=== PATIENT | female | born 1985 | race Two or more races ===

== ENCOUNTER 2021-11-16 22:20 | Emergency (ER) | payer MEDICAID ==
[~2021-11-16] VITALS: Ht 167.6 cm; Wt 82.7 kg
[2021-11-16] MEDS ORDERED: LORA-1000 PO (22:44)
[2021-11-16] MEDS ORDERED: ALPR-709 PO (22:44)
[2021-11-16] MEDS ORDERED: ZOLP10TA8 PO (22:44)
[2021-11-16] MEDS ORDERED: ESCI-8 PO (22:44)
[2021-11-16] MEDS ORDERED: MIRT30 PO (23:02)
[2021-11-16 23:29] LABS: BASOPHILS % (AUTO) 2.3 % (0.0-2.0); HEMOGLOBIN 9.4 g/dL (12.0-16.0); LYMPHOCYTES # (AUTO) 3.9 K/uL (1.0-4.8); LYMPHOCYTES % (AUTO) 40.5 % (22.0-44.0); MEAN CORPUSCULAR HEMOGLOBIN 24.3 pg (26.0-34.0); MEAN CORPUSCULAR HGB CONC 32.5 G/dL (31.0-37.0); MEAN CORPUSCULAR VOLUME 75 fL (80-100); MONOCYTES # (AUTO) 0.7 K/uL (0.1-1.0); MONOCYTES % (AUTO) 7.3 % (2.0-9.0); NEUTROPHILS # (AUTO) 4.4 K/uL (1.8-7.7); NEUTROPHILS % (AUTO) 45.9 % (40.0-70.0); PLATELET COUNT (AUTO) 195 K/uL (150-450); RED BLOOD CELL COUNT(AUTO) 3.88 MIL/uL (4.00-5.20)
[2021-11-16 23:38] LABS: ANION GAP 10 mmol/L (8-16); CALCIUM, TOTAL 8.1 mg/dL (8.8-10.5); CARBON DIOXIDE 23 mmol/L (22-29); CHLORIDE 104 mmol/L (98-107); CREATININE 0.85 mg/dL (0.60-1.30); GLOMERULAR FILTR. RATE CALC > 60 mL/min (>60); GLUCOSE,RANDOM 86 mg/dL (70-110); POTASSIUM 4.1 mmol/L (3.5-5.1); SODIUM SERUM 137 mmol/L (136-145); UREA NITROGEN, BLOOD 24 mg/dL (7-18)
[2021-11-16 23:44] LABS: ALANINE AMINOTRANSFERASE 13 U/L (12-78); ALBUMIN 3.4 g/dL (3.4-5.0); ALKALINE PHOSPHATASE 92 U/L (46-116); ASPARTATE AMINOTRANSFERASE 13 U/L (15-37); BILIRUBIN,TOTAL 0.1 mg/dL (0.1-1.0); LIPASE 140 U/L (73-393); TOTAL PROTEIN, SERUM 6.9 g/dL (6.4-8.2)
[2021-11-17] MEDS ORDERED: SODIUM CHLORIDE 0.9% 1,000 ML IV ONE ×2 (00:45)
[2021-11-17] MEDS ORDERED: DiphenhydrAMINE HCL 50 MG/ML VIAL IVP ONE (00:45)
[2021-11-17] MEDS ORDERED: FAMOTIDINE 10 MG/ML 2 ML VIAL IVP ONE (00:45)
[2021-11-17] MEDS ORDERED: MORPHINE SULFATE 4 MG/ML SYRINGE IVP ONE (00:45)
[2021-11-17 00:58] LABS: APPEARANCE,URINE CLEAR (CLEAR); BILIRUBIN,URINE NEGATIVE (NEGATIVE); GLUCOSE, URINE (UA) NEGATIVE (NEGATIVE); KETONES,URINE NEGATIVE (NEGATIVE); LEUKOCYTE ESTERASE ,URINE TRACE (NEGATIVE); NITRATE,URINE NEGATIVE (NEGATIVE); OCCULT BLOOD,URINE NEGATIVE (NEGATIVE); PH,URINE 5.5 (5.0-8.0); PROTEIN,URINE NEGATIVE (NEGATIVE); SPECIFIC GRAVITIY, URINE 1.011 (1.003-1.030); UROBILINOGEN,URINE <=1.0 mg/dL (<=1.0)
[2021-11-17 01:03] LABS: BACTERIA,URINE None Seen /HPF (None Seen); RBC,URINE 0-2 /HPF (0-2); SQUAMOUS EPITHELIAL CELL,UR Moderate /LPF (None Seen); WBC,URINE 0-2 /HPF (0-5)
[2021-11-17] MEDS ORDERED: KETAMINE HCL 50 MG/ML 10 ML VIAL IVP ONE (01:45)
[2021-11-17 01:56] LABS: AMPHET/METH SCREEN,URINE NEGATIVE (NEGATIVE); BARBITURATE SCREEN, URINE NEGATIVE (NEGATIVE); BENZODIAZEPINES SCREEN,URINE POSITIVE (NEGATIVE); CANNABINOID SCREEN,URINE POSITIVE (NEGATIVE); COCAINE SCREEN,URINE NEGATIVE (NEGATIVE); METHADONE SCREEN, URINE NEGATIVE (NEGATIVE); OPIATE SCREEN,URINE NEGATIVE (NEGATIVE)
[2021-11-17 01:58] LABS: PHENCYCLIDINE SCREEN,URINE NEGATIVE (NEGATIVE)
[2021-11-17] MEDS ORDERED: ONDANSETRON HCL 4 MG/2 ML VIAL IVP ONE ×2 (04:00)
[2021-11-17] MEDS ORDERED: MORPHINE SULFATE 2 MG/ML SYRINGE IVP ONE (04:15)
[2021-11-17 05:00] VITALS: BP 114/60
== END 2021-11-17 05:30 | disposition home or self-care (01) ==
LOC: EMS 22:23
DX: R10.13 Epigastric pain (principal); R10.12 Left upper quadrant pain; R11.10 Vomiting, unspecified; E86.0 Dehydration; F41.9 Anxiety disorder, unspecified; F32.9 Major depressive disorder, single episode, unspecified; Z88.6 Allergy status to analgesic agent; Z88.8 Allergy status to other drugs, medicaments and biological substances
CPT/HCPCS: 36415; 74176; 80053; 80307; 81001; 83690; 84703; 85025; 96361; 96374; 96375; 96376; 99284; G0480; J1200; J2270 ×2; J2405 ×2; J3490 ×2; J7030

== ENCOUNTER 2021-11-21 11:38 | Inpatient (IN) | payer MEDICAID ==
[~2021-11-21] VITALS: Ht 167.6 cm; Wt 81.8 kg
[~2021-11-21 11:38] MED LIST: ALPR-709 PO; ESCI-8 PO; LORA-1000 PO; MIRT30 PO; ZOLP10TA8 PO
[2021-11-21 12:08] LABS: APPEARANCE,URINE CLEAR (CLEAR); BILIRUBIN,URINE NEGATIVE (NEGATIVE); GLUCOSE, URINE (UA) NEGATIVE (NEGATIVE); KETONES,URINE NEGATIVE (NEGATIVE); LEUKOCYTE ESTERASE ,URINE NEGATIVE (NEGATIVE); NITRATE,URINE NEGATIVE (NEGATIVE); OCCULT BLOOD,URINE NEGATIVE (NEGATIVE); PH,URINE 7.5 (5.0-8.0); PROTEIN,URINE NEGATIVE (NEGATIVE); SPECIFIC GRAVITIY, URINE 1.005 (1.003-1.030); UROBILINOGEN,URINE <=1.0 mg/dL (<=1.0)
[2021-11-21 12:12] LABS: BACTERIA,URINE None Seen /HPF (None Seen); RBC,URINE None Seen /HPF (0-2); WBC,URINE None Seen /HPF (0-5)
[2021-11-21] MEDS ORDERED: SODIUM CHLORIDE 0.9% 1,000 ML IV ONE ×2 (12:30→17:00)
[2021-11-21 12:48] LABS: BASOPHILS % (AUTO) 2.2 % (0.0-2.0); EOSINOPHILS % (AUTO) 5.5 % (1.0-6.0); HEMATOCRIT 33.4 % (36-46); HEMOGLOBIN 10.9 g/dL (12.0-16.0); LYMPHOCYTES # (AUTO) 2.3 K/uL (1.0-4.8); LYMPHOCYTES % (AUTO) 37.3 % (22.0-44.0); MEAN CORPUSCULAR HEMOGLOBIN 24.3 pg (26.0-34.0); MEAN CORPUSCULAR HGB CONC 32.5 G/dL (31.0-37.0); MEAN CORPUSCULAR VOLUME 75 fL (80-100); MONOCYTES # (AUTO) 0.4 K/uL (0.1-1.0); MONOCYTES % (AUTO) 6.9 % (2.0-9.0); NEUTROPHILS # (AUTO) 2.9 K/uL (1.8-7.7); NEUTROPHILS % (AUTO) 48.1 % (40.0-70.0); PLATELET COUNT (AUTO) 212 K/uL (150-450); RED BLOOD CELL COUNT(AUTO) 4.46 MIL/uL (4.00-5.20); RED CELL DISTRIBUTION WIDTH 17.2 % (11.5-14.5)
[2021-11-21 13:00] LABS: ANION GAP 9 mmol/L (8-16); CALCIUM, TOTAL 8.6 mg/dL (8.8-10.5); CARBON DIOXIDE 25 mmol/L (22-29); CHLORIDE 106 mmol/L (98-107); GLOMERULAR FILTR. RATE CALC > 60 mL/min (>60); GLUCOSE,RANDOM 93 mg/dL (70-110); POTASSIUM 4.4 mmol/L (3.5-5.1); SODIUM SERUM 140 mmol/L (136-145); UREA NITROGEN, BLOOD 12 mg/dL (7-18)
[2021-11-21 13:05] LABS: ALBUMIN 3.8 g/dL (3.4-5.0); ASPARTATE AMINOTRANSFERASE 13 U/L (15-37); BILIRUBIN,TOTAL 0.3 mg/dL (0.1-1.0)
[2021-11-21 13:21] LABS: ALANINE AMINOTRANSFERASE 13 U/L (12-78); ALKALINE PHOSPHATASE 91 U/L (46-116); LIPASE 122 U/L (73-393); TOTAL PROTEIN, SERUM 7.8 g/dL (6.4-8.2)
[2021-11-21] MEDS ORDERED: HYDROmorphone 2 MG/ML VIAL IVP ONE (13:30)
[2021-11-21] MEDS ORDERED: ONDANSETRON HCL 4 MG/2 ML VIAL IVP ONE (13:30)
[2021-11-21] MEDS ORDERED: ACETAMINOPHEN 325 MG TABLET PO PRN ×2 (13:45→17:00)
[2021-11-21] MEDS ORDERED: ONDANSETRON HCL 4 MG/2 ML VIAL IVP PRN (13:45)
[2021-11-21] MEDS ORDERED: 0.9% SODIUM CHLORIDE 10 ML SYRINGE IVP PRN (13:45)
[2021-11-21] MEDS ORDERED: DiphenhydrAMINE HCL 50 MG/ML VIAL IVP ONE (13:45)
[2021-11-21] MEDS ORDERED: LORazepam 2 MG/ML VIAL IVP ONE (14:00)
[2021-11-21] MEDS ORDERED: MIDAZOLAM HCL 2 MG/2 ML VIAL IVP ONE (14:00)
[2021-11-21 14:19] LABS: TRIGLYCERIDES 130 mg/dL (15-150)
[2021-11-21] MEDS ORDERED: GADOTERATE MEGLUMINE 10 MMOL/20 ML VIAL IVP ONE (14:20)
[2021-11-21] MEDS ORDERED: KETAMINE HCL 50 MG/ML 10 ML VIAL IVP ONE (15:45)
[2021-11-21] MEDS ORDERED: MAGNESIUM HYDROXIDE SUSPENSION 30 ML UDCUP PO PRN (17:00)
[2021-11-21] MEDS: ONDANSETRON HCL 4 MG/2 ML VIAL IVP PRN (17:36)
[2021-11-21 17:50] LABS: COVID AG,FIA SOURCE NASAL SWAB
[2021-11-21] MEDS: DiphenhydrAMINE HCL 50 MG/ML VIAL IVP PRN (19:05)
[2021-11-21] MEDS: HYDROmorphone 2 MG/ML VIAL IVP PRN (19:06)
[2021-11-21 20:57] VITALS: BP 112/72
[2021-11-21] MEDS: PANTOPRAZOLE SODIUM 40 MG/VIAL IVP SCH (21:28)
[2021-11-21] MEDS: DOCUSATE SODIUM 100 MG CAPSULE PO SCH (21:29)
[2021-11-21] MEDS: MORPHINE SULFATE 2 MG/ML SYRINGE IVP PRN (23:11)
[2021-11-21] MEDS: ZOLPIDEM TARTRATE 5 MG TABLET PO PRN (23:21)
[2021-11-22] MEDS: ONDANSETRON HCL 4 MG/2 ML VIAL IVP PRN ×4 (00:54→20:49)
[2021-11-22] MEDS: HYDROmorphone 2 MG/ML VIAL IVP PRN ×4 (01:00→20:23)
[2021-11-22] MEDS: DiphenhydrAMINE HCL 50 MG/ML VIAL IVP PRN ×3 (02:52→18:53)
[2021-11-22 03:28] VITALS: BP 106/59
[2021-11-22] MEDS: MORPHINE SULFATE 2 MG/ML SYRINGE IVP PRN (05:00)
[2021-11-22 08:00] VITALS: BP 106/68
[2021-11-22] MEDS: PANTOPRAZOLE SODIUM 40 MG/VIAL IVP SCH ×2 (08:07→20:23)
[2021-11-22] MEDS: DOCUSATE SODIUM 100 MG CAPSULE PO SCH ×2 (08:07→20:23)
[2021-11-22] MEDS ORDERED: SODIUM CHLORIDE 0.9% 1,000 ML ONE (14:06)
[2021-11-22] MEDS ORDERED: ACETAMINOPHEN 1000 MG/ISO-OSM 100 ML IV ONE ×2 (16:00→16:06)
[2021-11-22 20:01] VITALS: BP 119/75
[2021-11-22] MEDS: ZOLPIDEM TARTRATE 5 MG TABLET PO PRN (22:29)
[2021-11-23] MEDS ORDERED: HYDROmorphone 2 MG/ML VIAL IVP ONE (00:45)
[2021-11-23 01:07] VITALS: BP 103/63
[2021-11-23] MEDS: HYDROmorphone 2 MG/ML VIAL IVP PRN ×2 (03:20→12:15)
[2021-11-23] MEDS: DiphenhydrAMINE HCL 50 MG/ML VIAL IVP PRN ×2 (03:35→12:14)
[2021-11-23 04:42] VITALS: BP 105/72
[2021-11-23 07:20] VITALS: BP 108/74
[2021-11-23] MEDS ORDERED: PANT-31 PO (08:22)
[2021-11-23] MEDS: DOCUSATE SODIUM 100 MG CAPSULE PO SCH (08:23)
[2021-11-23] MEDS: PANTOPRAZOLE SODIUM 40 MG/VIAL IVP SCH (08:24)
== END 2021-11-23 17:15 | disposition home or self-care (01) | DRG 241 ==
LOC: EMS 11:41 → 6N 19:00
PROVIDERS: ADMIT Internal Medicine; ATTEND Internal Medicine
PROC: 0DB68ZX Excision of Stomach, Via Natural or Artificial Opening Endoscopic, Diagnostic (ICD-10-PCS; principal; 2021-11-22 15:00)
DX: K25.9 Gastric ulcer, unspecified as acute or chronic, without hemorrhage or perforation (principal); D50.9 Iron deficiency anemia, unspecified; F11.20 Opioid dependence, uncomplicated; F41.1 Generalized anxiety disorder; K44.9 Diaphragmatic hernia without obstruction or gangrene; Z20.822 Contact with and (suspected) exposure to COVID-19; R13.10 Dysphagia, unspecified; Z90.49 Acquired absence of other specified parts of digestive tract; Z98.84 Bariatric surgery status; Z88.8 Allergy status to other drugs, medicaments and biological substances; Z88.6 Allergy status to analgesic agent; Z76.5 Malingerer [conscious simulation]
CPT/HCPCS: 74183; 80053; 81001; 83690; 84478; 84703; 85025; 87081; 88305; 88312; 99285; C9113; J0131; J1170; J1200; J2060; J2250; J2270; J2405; J3490; J7030

== ENCOUNTER 2022-01-29 15:41 | Emergency (ER) | payer MEDICAID ==
[~2022-01-29] VITALS: Ht 167.6 cm; Wt 77.3 kg
[~2022-01-29 15:41] MED LIST changes: -ALPR-709 PO; -LORA-1000 PO; +PANT-31 PO; -ZOLP10TA8 PO
[2022-01-29] MEDS ORDERED: METO5TAB95 PO (16:08)
[2022-01-29] MEDS ORDERED: ONDA-104 PO (16:08)
[2022-01-29] MEDS ORDERED: SODIUM CHLORIDE 0.9% 1,000 ML IV ONE (16:30)
[2022-01-29] MEDS ORDERED: FentaNYL CITRATE PF 100 MCG/2 ML VIAL IVP ONE (16:30)
[2022-01-29] MEDS ORDERED: ONDANSETRON HCL 4 MG/2 ML VIAL IVP ONE (16:30)
[2022-01-29 16:51] LABS: BASOPHILS % (AUTO) 3.4 % (0.0-2.0); HEMATOCRIT 35.8 % (36-46); HEMOGLOBIN 11.6 g/dL (12.0-16.0); LYMPHOCYTES # (AUTO) 2.4 K/uL (1.0-4.8); LYMPHOCYTES % (AUTO) 41.9 % (22.0-44.0); MEAN CORPUSCULAR HEMOGLOBIN 27.1 pg (26.0-34.0); MEAN CORPUSCULAR HGB CONC 32.3 G/dL (31.0-37.0); MEAN CORPUSCULAR VOLUME 84 fL (80-100); MONOCYTES # (AUTO) 0.4 K/uL (0.1-1.0); MONOCYTES % (AUTO) 6.6 % (2.0-9.0); NEUTROPHILS # (AUTO) 2.1 K/uL (1.8-7.7); NEUTROPHILS % (AUTO) 37.1 % (40.0-70.0); PLATELET COUNT (AUTO) 169 K/uL (150-450); RED BLOOD CELL COUNT(AUTO) 4.27 MIL/uL (4.00-5.20)
[2022-01-29 17:00] LABS: ANION GAP 6 mmol/L (8-16); CALCIUM, TOTAL 8.4 mg/dL (8.8-10.5); CARBON DIOXIDE 29 mmol/L (22-29); CHLORIDE 106 mmol/L (98-107); CREATININE 0.78 mg/dL (0.60-1.30); GLUCOSE,RANDOM 93 mg/dL (70-110); POTASSIUM 4.3 mmol/L (3.5-5.1); SODIUM SERUM 141 mmol/L (136-145); UREA NITROGEN, BLOOD 12 mg/dL (7-18)
[2022-01-29 17:01] LABS: GLOMERULAR FILTR. RATE CALC > 60 mL/min (>60)
[2022-01-29 17:06] LABS: ALANINE AMINOTRANSFERASE 18 U/L (12-78); ALBUMIN 3.2 g/dL (3.4-5.0); ALKALINE PHOSPHATASE 81 U/L (46-116); ASPARTATE AMINOTRANSFERASE 15 U/L (15-37); LIPASE 75 U/L (73-393); TOTAL PROTEIN, SERUM 6.3 g/dL (6.4-8.2)
[2022-01-29 17:17] LABS: BILIRUBIN,TOTAL 0.1 mg/dL (0.1-1.0)
[2022-01-29] MEDS ORDERED: DiphenhydrAMINE HCL 50 MG/ML VIAL IVP ONE (18:15)
[2022-01-29 18:27] VITALS: BP 118/71
[2022-01-29] MEDS ORDERED: PROMETHAZINE HCL 25 MG TABLET PO ONE (19:00)
== END 2022-01-29 19:48 | disposition left against medical advice (07) ==
LOC: EMS 15:45
DX: R10.13 Epigastric pain (principal); R11.2 Nausea with vomiting, unspecified; F17.210 Nicotine dependence, cigarettes, uncomplicated; Z88.5 Allergy status to narcotic agent; Z88.8 Allergy status to other drugs, medicaments and biological substances; Z79.899 Other long term (current) drug therapy
CPT/HCPCS: 36415; 80053; 83690; 85025; 96361; 96374; 96375; 99284; J1200; J2405; J3010; J7030

== ENCOUNTER 2022-05-10 20:08 | Emergency (ER) | payer MEDICAID ==
[~2022-05-10] VITALS: Ht 175.3 cm; Wt 104.5 kg
[~2022-05-10 20:08] MED LIST changes: +METO5TAB95 PO; +ONDA-104 PO
[2022-05-10] MEDS ORDERED: ONDANSETRON HCL 4 MG/2 ML VIAL IVP ONE (21:15)
[2022-05-10] MEDS ORDERED: SODIUM CHLORIDE 0.9% 1,000 ML IV ONE (21:15)
[2022-05-10] MEDS ORDERED: FentaNYL CITRATE PF 100 MCG/2 ML VIAL IVP ONE (21:15)
[2022-05-10] MEDS ORDERED: DiphenhydrAMINE HCL 50 MG/ML VIAL IVP ONE (21:45)
[2022-05-10 23:00] LABS: BASOPHILS % (AUTO) 0.3 % (0.0-2.0); EOSINOPHILS % (AUTO) 5.8 % (1.0-6.0); HEMATOCRIT 37.4 % (36-46); HEMOGLOBIN 12.3 g/dL (12.0-16.0); LYMPHOCYTES # (AUTO) 3.7 K/uL (1.0-4.8); LYMPHOCYTES % (AUTO) 36.8 % (22.0-44.0); MEAN CORPUSCULAR HEMOGLOBIN 30.6 pg (26.0-34.0); MEAN CORPUSCULAR HGB CONC 32.9 G/dL (31.0-37.0); MEAN CORPUSCULAR VOLUME 93 fL (80-100); MONOCYTES # (AUTO) 0.5 K/uL (0.1-1.0); MONOCYTES % (AUTO) 4.6 % (2.0-9.0); NEUTROPHILS # (AUTO) 5.3 K/uL (1.8-7.7); NEUTROPHILS % (AUTO) 52.5 % (40.0-70.0); PLATELET COUNT (AUTO) 177 K/uL (150-450); RED BLOOD CELL COUNT(AUTO) 4.02 MIL/uL (4.00-5.20); RED CELL DISTRIBUTION WIDTH 13.7 % (11.5-14.5)
[2022-05-10 23:12] LABS: ANION GAP 6 mmol/L (8-16); CALCIUM, TOTAL 8.6 mg/dL (8.8-10.5); CARBON DIOXIDE 30 mmol/L (22-29); CHLORIDE 104 mmol/L (98-107); GLOMERULAR FILTR. RATE CALC > 60 mL/min (>60); GLUCOSE,RANDOM 86 mg/dL (70-110); POTASSIUM 4.1 mmol/L (3.5-5.1); SODIUM SERUM 140 mmol/L (136-145); UREA NITROGEN, BLOOD 14 mg/dL (7-18)
[2022-05-10 23:25] LABS: ALANINE AMINOTRANSFERASE 12 U/L (12-78); ALBUMIN 3.6 g/dL (3.4-5.0); ALKALINE PHOSPHATASE 70 U/L (46-116); ASPARTATE AMINOTRANSFERASE 10 U/L (15-37); BILIRUBIN,TOTAL 0.2 mg/dL (0.1-1.0); HCG,QUANTITATIVE < 1 mIU/mL (0-6); LIPASE 455 U/L (73-393)
[2022-05-11] MEDS ORDERED: ONDANSETRON HCL 4 MG/2 ML VIAL IVP PRN
[2022-05-11] MEDS ORDERED: ACETAMINOPHEN 325 MG TABLET PO PRN
[2022-05-11] MEDS ORDERED: DiphenhydrAMINE HCL 50 MG/ML VIAL IVP PRN (00:45)
[2022-05-11] MEDS ORDERED: DiphenhydrAMINE HCL 50 MG/ML VIAL IM PRN (00:45)
[2022-05-11] MEDS ORDERED: HYDROCODONE/ACETAMINOPHEN 5-325 MG TABLET PO PRN (00:45)
[2022-05-11] MEDS: HYDROmorphone 2 MG/ML VIAL IVP PRN ×2 (00:46→07:47)
[2022-05-11 00:55] LABS: COVID AG,FIA SOURCE NASOPHARYNGEAL
[2022-05-11] MEDS: RINGERS SOLUTION,LACTATED 1,000 ML IV SCH ×2 (01:03→09:53)
[2022-05-11] MEDS: HEPARIN SODIUM,PORCINE 5,000 UNITS/ML VIAL SQ SCH ×2 (01:03→07:47)
[2022-05-11 08:23] LABS: APPEARANCE,URINE CLEAR (CLEAR); BILIRUBIN,URINE NEGATIVE (NEGATIVE); GLUCOSE, URINE (UA) NEGATIVE (NEGATIVE); KETONES,URINE TRACE mg/dL (NEGATIVE); LEUKOCYTE ESTERASE ,URINE TRACE (NEGATIVE); NITRATE,URINE NEGATIVE (NEGATIVE); OCCULT BLOOD,URINE TRACE (NEGATIVE); PROTEIN,URINE NEGATIVE (NEGATIVE); SPECIFIC GRAVITIY, URINE 1.025 (1.003-1.030); UROBILINOGEN,URINE <=1.0 mg/dL (<=1.0)
[2022-05-11 09:05] LABS: RBC,URINE 0-2 /HPF (0-2); SQUAMOUS EPITHELIAL CELL,UR Moderate /LPF (None Seen)
[2022-05-11 09:06] LABS: BACTERIA,URINE Few /HPF (None Seen)
[2022-05-11 10:05] VITALS: BP 125/87
== END 2022-05-11 10:49 | disposition left against medical advice (07) ==
LOC: EMS 20:11
DX: K85.90 Acute pancreatitis without necrosis or infection, unspecified (principal); Z20.822 Contact with and (suspected) exposure to COVID-19; F12.10 Cannabis abuse, uncomplicated; Z90.49 Acquired absence of other specified parts of digestive tract; Z98.84 Bariatric surgery status; Z88.6 Allergy status to analgesic agent
CPT/HCPCS: 99285; 96374; 96375 ×2; 96361 ×2; 87426; 80053; 81001; 83690; 84702; 85025; 36415; 96376; 96372; J1200 ×2; J3010; J2405 ×2; J7030; J1170; J1644; J7120

== ENCOUNTER 2022-09-15 20:11 | Emergency (ER) | payer MEDICAID ==
[~2022-09-15] VITALS: Ht 165.1 cm; Wt 82.7 kg
[~2022-09-15 20:11] MED LIST changes: +MIRT-149 PO; -MIRT30 PO
[2022-09-15] MEDS ORDERED: ALPR-709 PO (20:52)
[2022-09-15] MEDS ORDERED: ZOLP10TA8 PO (20:52)
[2022-09-15 21:15] LABS: COVID AG,FIA SOURCE NASAL SWAB
[2022-09-15] MEDS ORDERED: SODIUM CHLORIDE 0.9% 1,000 ML IV ONE (21:30)
[2022-09-15 21:35] LABS: APPEARANCE,URINE CLEAR (CLEAR); BILIRUBIN,URINE NEGATIVE (NEGATIVE); GLUCOSE, URINE (UA) NEGATIVE (NEGATIVE); KETONES,URINE NEGATIVE (NEGATIVE); LEUKOCYTE ESTERASE ,URINE NEGATIVE (NEGATIVE); NITRATE,URINE NEGATIVE (NEGATIVE); OCCULT BLOOD,URINE NEGATIVE (NEGATIVE); PROTEIN,URINE NEGATIVE (NEGATIVE); SPECIFIC GRAVITIY, URINE 1.008 (1.003-1.030); UROBILINOGEN,URINE <=1.0 mg/dL (<=1.0)
[2022-09-15 21:42] LABS: ANION GAP 7 mmol/L (8-16); CALCIUM, TOTAL 8.5 mg/dL (8.8-10.5); CARBON DIOXIDE 28 mmol/L (22-29); CHLORIDE 104 mmol/L (98-107); CREATININE 0.88 mg/dL (0.60-1.30); GLUCOSE,RANDOM 89 mg/dL (70-110); POTASSIUM 4.2 mmol/L (3.5-5.1); SODIUM SERUM 139 mmol/L (136-145); UREA NITROGEN, BLOOD 24 mg/dL (7-18)
[2022-09-15 21:46] LABS: GLOMERULAR FILTR. RATE CALC > 60 mL/min (>60)
[2022-09-15 21:48] LABS: ALANINE AMINOTRANSFERASE 14 U/L (12-78); ALKALINE PHOSPHATASE 95 U/L (46-116); ASPARTATE AMINOTRANSFERASE 21 U/L (15-37); BILIRUBIN,TOTAL 0.2 mg/dL (0.1-1.0); LIPASE 139 U/L (73-393); TOTAL PROTEIN, SERUM 7.9 g/dL (6.4-8.2)
[2022-09-15 21:50] LABS: PROTHROMBIN TIME 10.3 SEC (9.4-11.6)
[2022-09-15 22:35] LABS: RAPID GROUP A STREP NEGATIVE (NEGATIVE)
[2022-09-15 22:43] LABS: INFLUENZA TYPE A NEGATIVE FOR TYPE A (NEGATIVE); INFLUENZA TYPE B NEGATIVE FOR TYPE B (NEGATIVE)
[2022-09-15 22:46] VITALS: BP 132/85
[2022-09-15 22:47] LABS: BASOPHILS % (AUTO) 2.3 % (0.0-2.0); EOSINOPHILS % (AUTO) 3.6 % (1.0-6.0); HEMATOCRIT 36.6 % (36-46); HEMOGLOBIN 11.8 g/dL (12.0-16.0); LYMPHOCYTES % (AUTO) 37.5 % (22.0-44.0); MEAN CORPUSCULAR HEMOGLOBIN 28.9 pg (26.0-34.0); MEAN CORPUSCULAR HGB CONC 32.2 G/dL (31.0-37.0); MEAN CORPUSCULAR VOLUME 90 fL (80-100); MONOCYTES # (AUTO) 0.5 K/uL (0.1-1.0); MONOCYTES % (AUTO) 6.4 % (2.0-9.0); NEUTROPHILS % (AUTO) 50.2 % (40.0-70.0); PLATELET COUNT (AUTO) 219 K/uL (150-450); RED BLOOD CELL COUNT(AUTO) 4.07 MIL/uL (4.00-5.20); RED CELL DISTRIBUTION WIDTH 13.6 % (11.5-14.5)
[2022-09-15] MEDS ORDERED: HYDROmorphone HCL 2 MG/ML SYRINGE IVP ONE (23:00)
[2022-09-15] MEDS ORDERED: SODIUM CHLORIDE 0.9% 50 ML ONE (23:08)
[2022-09-15] MEDS ORDERED: DiphenhydrAMINE HCL 50 MG/ML VIAL IVP ONE (23:15)
[2022-09-16] MEDS ORDERED: IOHEXOL 350 MG/ML 100 ML VIAL ONE (00:19)
[2022-09-16] MEDS ORDERED: SODIUM CHLORIDE 0.9% 100 ML ONE (00:19)
[2022-09-16] MEDS ORDERED: HYDROmorphone HCL 2 MG/ML SYRINGE IVP ONE (00:45)
[2022-09-16] MEDS ORDERED: HYDROmorphone HCL 2 MG/ML SYRINGE IM ONE (00:45)
== END 2022-09-16 01:40 | disposition left against medical advice (07) ==
LOC: EMS 20:13
DX: R10.13 Epigastric pain (principal); K85.90 Acute pancreatitis without necrosis or infection, unspecified; F12.90 Cannabis use, unspecified, uncomplicated; Z90.89 Acquired absence of other organs; Z88.5 Allergy status to narcotic agent; Z88.8 Allergy status to other drugs, medicaments and biological substances; Z79.1 Long term (current) use of non-steroidal anti-inflammatories (NSAID); Z20.822 Contact with and (suspected) exposure to COVID-19
CPT/HCPCS: 99285; 74177; 96374; 96361; 96375; 87426; 80053; 81003; 83690; 85025; 85610; 85730; 87430; 87804; 36415; 93005; J1200; J1170; J7050 ×2; Q9967

== ENCOUNTER 2023-11-08 11:30 | Inpatient (IN) | payer MEDICAID ==
[~2023-11-08] VITALS: Ht 162.6 cm; Wt 83.0 kg
[~2023-11-08 11:30] MED LIST changes: +CLOM50 PO; +DULO20CA71 PO; -ESCI-8 PO; +FERR-89 PO; +LORA-1000 PO; -METO5TAB95 PO; -MIRT-149 PO; +MIRT-89 PO; -ONDA-104 PO; -PANT-31 PO; +ZOLP-162 PO
[2023-11-08] MEDS ORDERED: [UNRECOGNIZED DRUG - CODE] PO (11:37)
[2023-11-08] MEDS ORDERED: CLOM25 PO (11:37)
[2023-11-08] MEDS ORDERED: MIRT-92 PO (11:37)
[2023-11-08 12:45] LABS: BASOPHILS % (AUTO) 1.2 % (0.0-2.0); EOSINOPHILS % (AUTO) 3.1 % (1.0-6.0); HEMATOCRIT 33.8 % (36-46); HEMOGLOBIN 10.8 g/dL (12.0-16.0); LYMPHOCYTES # (AUTO) 2.6 K/uL (1.0-4.8); LYMPHOCYTES % (AUTO) 31.9 % (22.0-44.0); MEAN CORPUSCULAR HEMOGLOBIN 25.2 pg (26.0-34.0); MEAN CORPUSCULAR VOLUME 79 fL (80-100); MONOCYTES # (AUTO) 0.5 K/uL (0.1-1.0); MONOCYTES % (AUTO) 6.7 % (2.0-9.0); NEUTROPHILS # (AUTO) 4.6 K/uL (1.8-7.7); NEUTROPHILS % (AUTO) 57.1 % (40.0-70.0); PLATELET COUNT (AUTO) 229 K/uL (150-450); RED BLOOD CELL COUNT(AUTO) 4.29 MIL/uL (4.00-5.20); RED CELL DISTRIBUTION WIDTH 16.9 % (11.5-14.5)
[2023-11-08 12:52] LABS: ANION GAP 10 mmol/L (8-16); CALCIUM, TOTAL 8.3 mg/dL (8.8-10.5); CARBON DIOXIDE 27 mmol/L (22-29); CHLORIDE 101 mmol/L (98-107); CREATININE 0.98 mg/dL (0.60-1.30); GLOMERULAR FILTR. RATE CALC > 60 mL/min (>60); GLUCOSE,RANDOM 95 mg/dL (70-110); SODIUM SERUM 138 mmol/L (136-145); UREA NITROGEN, BLOOD 18 mg/dL (7-18)
[2023-11-08] MEDS: FentaNYL CITRATE PF 100 MCG/2 ML VIAL IVP ONE ×2 (12:53→14:41)
[2023-11-08] MEDS: SODIUM CHLORIDE 0.9% 1,000 ML IV ONE (12:54)
[2023-11-08 12:58] LABS: ALANINE AMINOTRANSFERASE 19 U/L (12-78); ALBUMIN 3.6 g/dL (3.4-5.0); ALKALINE PHOSPHATASE 108 U/L (46-116); ASPARTATE AMINOTRANSFERASE 15 U/L (15-37); BILIRUBIN,TOTAL 0.2 mg/dL (0.1-1.0); LIPASE 48 U/L (16-77); TOTAL PROTEIN, SERUM 7.9 g/dL (6.4-8.2)
[2023-11-08] MEDS: ONDANSETRON HCL 4 MG/2 ML VIAL IVP ONE (13:25)
[2023-11-08] MEDS: DiphenhydrAMINE HCL 50 MG/ML VIAL IVP ONE (13:25)
[2023-11-08] MEDS: PROCHLORPERAZINE EDISYLATE 5 MG/ML 2 ML VIAL IVP ONE (14:35)
[2023-11-08] MEDS ORDERED: BISACODYL 10 MG RECTAL RECTAL SUPPOSITORY PR PRN (15:30)
[2023-11-08] MEDS ORDERED: MAGNESIUM HYDROXIDE SUSPENSION 30 ML UDCUP PO PRN (15:30)
[2023-11-08 15:51] LABS: COVID AG,FIA SOURCE NASAL SWAB
[2023-11-08 16:21] LABS: SARS-COV2 (COVID) ANTIGEN,FIA Negative (Negative)
[2023-11-08 16:43] VITALS: BP 124/84; PULSE 103; RESP 18; TEMP 98.1
[2023-11-08] MEDS: HYDROmorphone HCL 2 MG/ML SYRINGE IVP PRN (16:45)
[2023-11-08] MEDS: HEPARIN SODIUM,PORCINE 5,000 UNITS/ML VIAL SQ SCH (16:45)
[2023-11-08] MEDS ORDERED: DiphenhydrAMINE HCL 25 MG CAPSULE PO SCH (18:00)
[2023-11-08] MEDS: DiphenhydrAMINE HCL 50 MG/ML VIAL IVP SCH (18:01)
[2023-11-08] MEDS: MIRTAZAPINE 15 MG TABLET PO SCH (21:19)
[2023-11-08] MEDS: DOCUSATE SODIUM 100 MG CAPSULE PO SCH (21:20)
[2023-11-08] MEDS: ZOLPIDEM TARTRATE 5 MG TABLET PO PRN (21:21)
[2023-11-08] MEDS: ACETAMINOPHEN 325 MG TABLET PO PRN (21:22)
[2023-11-08 21:42] VITALS: BP 130/89; PULSE 107; RESP 18; TEMP 97.7
[2023-11-08 23:04] VITALS: BP 111/76; PULSE 96; RESP 18; TEMP 97.4
[2023-11-09 04:17] VITALS: BP 134/90; PULSE 110; RESP 20; TEMP 97.7
[2023-11-09 08:01] VITALS: BP 109/75; PULSE 105; RESP 18; TEMP 97.9
[2023-11-09 08:30] LABS: EOSINOPHILS % (AUTO) 5.7 % (1.0-6.0); HEMATOCRIT 33.8 % (36-46); HEMOGLOBIN 10.7 g/dL (12.0-16.0); LYMPHOCYTES # (AUTO) 2.9 K/uL (1.0-4.8); LYMPHOCYTES % (AUTO) 43.6 % (22.0-44.0); MEAN CORPUSCULAR HEMOGLOBIN 25.1 pg (26.0-34.0); MEAN CORPUSCULAR HGB CONC 31.6 G/dL (31.0-37.0); MEAN CORPUSCULAR VOLUME 79 fL (80-100); MONOCYTES # (AUTO) 0.5 K/uL (0.1-1.0); MONOCYTES % (AUTO) 7.9 % (2.0-9.0); NEUTROPHILS # (AUTO) 2.8 K/uL (1.8-7.7); NEUTROPHILS % (AUTO) 40.8 % (40.0-70.0); PLATELET COUNT (AUTO) 232 K/uL (150-450); RED BLOOD CELL COUNT(AUTO) 4.25 MIL/uL (4.00-5.20); RED CELL DISTRIBUTION WIDTH 16.5 % (11.5-14.5); WHITE BLOOD COUNT (AUTO) 6.7 K/uL (4.5-11.0)
[2023-11-09 08:44] LABS: ALANINE AMINOTRANSFERASE 29 U/L (12-78); ALBUMIN 3.4 g/dL (3.4-5.0); ALKALINE PHOSPHATASE 93 U/L (46-116); ANION GAP 11 mmol/L (8-16); ASPARTATE AMINOTRANSFERASE 30 U/L (15-37); BILIRUBIN,TOTAL 0.3 mg/dL (0.1-1.0); CALCIUM, TOTAL 8.2 mg/dL (8.8-10.5); CARBON DIOXIDE 25 mmol/L (22-29); CHLORIDE 102 mmol/L (98-107); GLOMERULAR FILTR. RATE CALC > 60 mL/min (>60); GLUCOSE,RANDOM 118 mg/dL (70-110); POTASSIUM 4.3 mmol/L (3.5-5.1); SODIUM SERUM 138 mmol/L (136-145); TOTAL PROTEIN, SERUM 7.5 g/dL (6.4-8.2); UREA NITROGEN, BLOOD 11 mg/dL (7-18)
[2023-11-09] MEDS: PANTOPRAZOLE SODIUM 40 MG DR TABLET PO SCH (09:11)
[2023-11-09] MEDS: DULoxetine HCL 20 MG CAPSULE PO SCH (09:11)
[2023-11-09] MEDS: ONDANSETRON HCL 4 MG/2 ML VIAL IVP PRN (09:18)
[2023-11-09] MEDS: DiphenhydrAMINE HCL 50 MG/ML VIAL IVP PRN (12:59)
[2023-11-09] MEDS: PANTOPRAZOLE SODIUM 40 MG/VIAL IVP SCH (12:59)
[2023-11-09] MEDS: SODIUM CHLORIDE 0.9% 500 ML IV ONE (13:15)
[2023-11-09] MEDS: FAMOTIDINE 20 MG/2 ML VIAL IVP SCH (14:04)
[2023-11-09] MEDS: LORazepam 1 MG TABLET PO SCH (15:08)
[2023-11-09] MEDS: DEXTROSE 5%-0.45% SODIUM CHL 1,000 ML IV SCH (15:09)
[2023-11-09 16:34] VITALS: BP 118/76; PULSE 112; RESP 18; TEMP 98.5
[2023-11-09 19:31] VITALS: BP 114/82; PULSE 113; RESP 18; TEMP 98.9
[2023-11-10 01:01] VITALS: BP 116/69; RESP 18; TEMP 98.6
[2023-11-10 05:49] VITALS: BP 117/75; RESP 19; TEMP 97.5
[2023-11-10 07:53] LABS: HEMATOCRIT 32.5 % (36-46); HEMOGLOBIN 10.5 g/dL (12.0-16.0); MEAN CORPUSCULAR HEMOGLOBIN 25.4 pg (26.0-34.0); MEAN CORPUSCULAR HGB CONC 32.4 G/dL (31.0-37.0); MEAN CORPUSCULAR VOLUME 78 fL (80-100); PLATELET COUNT (AUTO) 208 K/uL (150-450); RED BLOOD CELL COUNT(AUTO) 4.14 MIL/uL (4.00-5.20); RED CELL DISTRIBUTION WIDTH 16.6 % (11.5-14.5); WHITE BLOOD COUNT (AUTO) 6.8 K/uL (4.5-11.0)
[2023-11-10 08:31] VITALS: BP 132/76; PULSE 114; RESP 18; TEMP 98.5
[2023-11-10] MEDS ORDERED: MIDAZOLAM HCL 5 MG/ML VIAL ONE (08:35)
[2023-11-10] MEDS ORDERED: FentaNYL CITRATE PF 100 MCG/2 ML VIAL ONE (08:35)
[2023-11-10 08:37] LABS: BAND NEUTROPHILS % (MANUAL) 0 % (0-5)
[2023-11-10 08:40] LABS: BASOPHILS % (MANUAL) 1 % (0-2); EOSINOPHILS % (MANUAL) 6 % (1-6); LYMPHOCYTES % (MANUAL) 34 % (22-44); MONOCYTES % (MANUAL) 8 % (2-9); REACTIVE LYMPHOCYTES 1 % (0-0); SEGMENTED NEUTROPHILS % 50 % (40-70); TOTAL CELLS COUNTED 100
[2023-11-10] MEDS ORDERED: SODIUM CHLORIDE 0.9% 1,000 ML ONE (08:48)
[2023-11-10 20:56] VITALS: BP 130/92; PULSE 118; RESP 18; TEMP 98.7
[2023-11-11 04:48] VITALS: BP 121/80; PULSE 122; RESP 20; TEMP 98.6
[2023-11-11] MEDS ORDERED: PROPOFOL 1% 20 ML VIAL IVP ONE (06:10)
[2023-11-11] MEDS ORDERED: LIDOCAINE/PF 2% 5 ML VIAL IM ONE (06:10)
[2023-11-11 08:21] LABS: BASOPHILS % (AUTO) 1.1 % (0.0-2.0); EOSINOPHILS % (AUTO) 13.8 % (1.0-6.0); HEMATOCRIT 26.9 % (36-46); HEMOGLOBIN 8.9 g/dL (12.0-16.0); LYMPHOCYTES # (AUTO) 2.2 K/uL (1.0-4.8); LYMPHOCYTES % (AUTO) 28.7 % (22.0-44.0); MEAN CORPUSCULAR HEMOGLOBIN 25.5 pg (26.0-34.0); MEAN CORPUSCULAR HGB CONC 32.9 G/dL (31.0-37.0); MEAN CORPUSCULAR VOLUME 78 fL (80-100); MONOCYTES # (AUTO) 0.7 K/uL (0.1-1.0); MONOCYTES % (AUTO) 9.3 % (2.0-9.0); NEUTROPHILS # (AUTO) 3.7 K/uL (1.8-7.7); NEUTROPHILS % (AUTO) 47.1 % (40.0-70.0); RED BLOOD CELL COUNT(AUTO) 3.47 MIL/uL (4.00-5.20); RED CELL DISTRIBUTION WIDTH 16.7 % (11.5-14.5); WHITE BLOOD COUNT (AUTO) 7.8 K/uL (4.5-11.0)
[2023-11-11 08:23] LABS: PLATELET COUNT (AUTO) 206 K/uL (150-450)
[2023-11-11 08:30] VITALS: BP 106/88; PULSE 108; RESP 20; TEMP 98.6
[2023-11-11 15:58] VITALS: BP 110/83; PULSE 104; RESP 20; TEMP 98.4
[2023-11-11 20:28] VITALS: BP 125/87; PULSE 106; RESP 18; TEMP 98.9
[2023-11-12 03:14] VITALS: BP 130/86; PULSE 111; RESP 18; TEMP 98.4
[2023-11-12 07:19] LABS: BASOPHILS % (AUTO) 0.9 % (0.0-2.0); HEMOGLOBIN 9.5 g/dL (12.0-16.0); LYMPHOCYTES # (AUTO) 1.9 K/uL (1.0-4.8); LYMPHOCYTES % (AUTO) 27.2 % (22.0-44.0); MEAN CORPUSCULAR HEMOGLOBIN 25.9 pg (26.0-34.0); MEAN CORPUSCULAR HGB CONC 32.9 G/dL (31.0-37.0); MEAN CORPUSCULAR VOLUME 79 fL (80-100); MONOCYTES # (AUTO) 0.6 K/uL (0.1-1.0); MONOCYTES % (AUTO) 8.2 % (2.0-9.0); NEUTROPHILS # (AUTO) 3.3 K/uL (1.8-7.7); NEUTROPHILS % (AUTO) 46.5 % (40.0-70.0); PLATELET COUNT (AUTO) 213 K/uL (150-450); RED BLOOD CELL COUNT(AUTO) 3.68 MIL/uL (4.00-5.20); RED CELL DISTRIBUTION WIDTH 16.3 % (11.5-14.5)
[2023-11-12 07:23] LABS: EOSINOPHILS % (AUTO) 17.2 % (1.0-6.0)
[2023-11-12 07:26] LABS: ANION GAP 7 mmol/L (8-16); CALCIUM, TOTAL 7.9 mg/dL (8.8-10.5); CARBON DIOXIDE 27 mmol/L (22-29); CHLORIDE 104 mmol/L (98-107); GLOMERULAR FILTR. RATE CALC > 60 mL/min (>60); GLUCOSE,RANDOM 95 mg/dL (70-110); POTASSIUM 3.7 mmol/L (3.5-5.1); SODIUM SERUM 138 mmol/L (136-145); UREA NITROGEN, BLOOD 7 mg/dL (7-18)
[2023-11-12 08:36] LABS: RBC MORPHOLOGY COMMENT ABNORMAL RBC MORPH
[2023-11-12] MEDS: LORazepam 2 MG/ML VIAL IVP ONE (08:43)
[2023-11-12 09:06] VITALS: BP 137/95; PULSE 91; RESP 20; TEMP 98
[2023-11-12 10:02] LABS: PH,URINE DRUG SCREEN 7.5 (5.0-8.0)
[2023-11-12 10:13] LABS: ALCOHOL, URINE DRUG SCREEN NEGATIVE (NEGATIVE); AMPHET/METH SCREEN,URINE NEGATIVE (NEGATIVE); BARBITURATE SCREEN, URINE NEGATIVE (NEGATIVE); BENZODIAZEPINES SCREEN,URINE POSITIVE (NEGATIVE); CANNABINOID SCREEN,URINE POSITIVE (NEGATIVE); COCAINE SCREEN,URINE NEGATIVE (NEGATIVE); METHADONE SCREEN, URINE NEGATIVE (NEGATIVE); OPIATE SCREEN,URINE POSITIVE (NEGATIVE); PHENCYCLIDINE SCREEN,URINE NEGATIVE (NEGATIVE)
[2023-11-12] MEDS ORDERED: HYDR2TAB5 PO ×2 (10:50→16:17)
[2023-11-12] MEDS ORDERED: PANT-31 PO (14:34)
[2023-11-12 15:45] VITALS: BP 130/96; PULSE 98; RESP 20; TEMP 99.4
[2023-11-12] MEDS ORDERED: NALO4SPR NASAL (16:08)
== END 2023-11-12 18:20 | disposition home or self-care (01) | DRG 241 ==
LOC: EMS 11:37 → 6S 15:01
PROVIDERS: ADMIT Internal Medicine; ATTEND Internal Medicine
PROC: 0DB58ZX Excision of Esophagus, Via Natural or Artificial Opening Endoscopic, Diagnostic (ICD-10-PCS; 2023-11-10)
PROC: 0DBA8ZX Excision of Jejunum, Via Natural or Artificial Opening Endoscopic, Diagnostic (ICD-10-PCS; 2023-11-10)
PROC: 0DB68ZX Excision of Stomach, Via Natural or Artificial Opening Endoscopic, Diagnostic (ICD-10-PCS; principal; 2023-11-10 09:00)
DX: K29.60 Other gastritis without bleeding (principal); K85.90 Acute pancreatitis without necrosis or infection, unspecified; D64.9 Anemia, unspecified; E66.01 Morbid (severe) obesity due to excess calories; Z20.822 Contact with and (suspected) exposure to COVID-19; F41.9 Anxiety disorder, unspecified; F11.20 Opioid dependence, uncomplicated; Z87.11 Personal history of peptic ulcer disease; Z98.84 Bariatric surgery status; K29.00 Acute gastritis without bleeding
CPT/HCPCS: 71045; 74176; 80048; 80053; 80307; 83690; 85025; 88305; 88312; 88313; 99285; C9113; J0780; J1170; J1200; J1644; J2060; J2250; J2405; J2704; J3010; J3490; J7030; J7040; 36415-L1; 36415-TC

== ENCOUNTER 2023-11-20 12:09 | Emergency (ER) | payer MEDICAID ==
[~2023-11-20] VITALS: Ht 165.1 cm; Wt 84.5 kg
[~2023-11-20 12:09] MED LIST changes: +CLOM25 PO; -CLOM50 PO; -FERR-89 PO; +HYDR2TAB5 PO; -MIRT-89 PO; +MIRT-92 PO; +NALO4SPR NASAL; +PANT-31 PO; +[UNRECOGNIZED DRUG - CODE] PO
[2023-11-20 12:21] VITALS: TEMP 98
[2023-11-20] MEDS: SODIUM CHLORIDE 0.9% 1,000 ML IV ONE (13:56)
[2023-11-20] MEDS: ONDANSETRON HCL 4 MG/2 ML VIAL IVP ONE (13:57)
[2023-11-20 14:07] LABS: BASOPHILS % (AUTO) 1.7 % (0.0-2.0); EOSINOPHILS % (AUTO) 1.3 % (1.0-6.0); HEMATOCRIT 31.9 % (36-46); HEMOGLOBIN 10.4 g/dL (12.0-16.0); LYMPHOCYTES % (AUTO) 14.5 % (22.0-44.0); MEAN CORPUSCULAR HEMOGLOBIN 25.6 pg (26.0-34.0); MEAN CORPUSCULAR HGB CONC 32.5 G/dL (31.0-37.0); MEAN CORPUSCULAR VOLUME 79 fL (80-100); MONOCYTES # (AUTO) 0.5 K/uL (0.1-1.0); MONOCYTES % (AUTO) 6.8 % (2.0-9.0); NEUTROPHILS # (AUTO) 5.2 K/uL (1.8-7.7); NEUTROPHILS % (AUTO) 75.7 % (40.0-70.0); PLATELET COUNT (AUTO) 285 K/uL (150-450); RED BLOOD CELL COUNT(AUTO) 4.06 MIL/uL (4.00-5.20); RED CELL DISTRIBUTION WIDTH 17.2 % (11.5-14.5); WHITE BLOOD COUNT (AUTO) 6.8 K/uL (4.5-11.0)
[2023-11-20 14:19] LABS: ANION GAP 11 mmol/L (8-16); CALCIUM, TOTAL 8.4 mg/dL (8.8-10.5); CARBON DIOXIDE 25 mmol/L (22-29); CHLORIDE 101 mmol/L (98-107); GLOMERULAR FILTR. RATE CALC > 60 mL/min (>60); GLUCOSE,RANDOM 101 mg/dL (70-110); POTASSIUM 3.9 mmol/L (3.5-5.1); SODIUM SERUM 137 mmol/L (136-145); UREA NITROGEN, BLOOD 18 mg/dL (7-18)
[2023-11-20 14:28] LABS: ALANINE AMINOTRANSFERASE 20 U/L (12-78); ALBUMIN 3.5 g/dL (3.4-5.0); ALKALINE PHOSPHATASE 90 U/L (46-116); ASPARTATE AMINOTRANSFERASE 16 U/L (15-37); BILIRUBIN,TOTAL 0.3 mg/dL (0.1-1.0); HCG,QUANTITATIVE < 1 mIU/mL (0-6); LIPASE 84 U/L (16-77); TOTAL PROTEIN, SERUM 7.8 g/dL (6.4-8.2)
[2023-11-20 15:46] VITALS: BP 129/64; PULSE 98; RESP 18
[2023-11-20] MEDS: FentaNYL CITRATE PF 100 MCG/2 ML VIAL IVP ONE (15:46)
== END 2023-11-20 15:55 | disposition left against medical advice (07) ==
LOC: EMS 12:09
DX: R10.9 Unspecified abdominal pain (principal); F41.9 Anxiety disorder, unspecified; K85.90 Acute pancreatitis without necrosis or infection, unspecified; F12.90 Cannabis use, unspecified, uncomplicated; Z90.89 Acquired absence of other organs; Z88.5 Allergy status to narcotic agent; Z53.29 Procedure and treatment not carried out because of patient's decision for other reasons
CPT/HCPCS: 99284; 96374; 96361; 80053; 83690; 84702; 85025; 36415; 93005; G0480; J2405

== ENCOUNTER 2023-11-20 19:10 | Emergency (ER) | payer MEDICAID ==
[2023-11-20 23:17] VITALS: BP 126/93; PULSE 114; RESP 18
[2023-11-20] MEDS ORDERED: FentaNYL CITRATE PF 100 MCG/2 ML VIAL IVP ONE (23:30)
[2023-11-20] MEDS: ONDANSETRON HCL 4 MG/2 ML VIAL IM ONE (23:39)
[2023-11-20] MEDS: FentaNYL CITRATE PF 100 MCG/2 ML VIAL IM ONE (23:40)
[2023-11-20] MEDS ORDERED: FentaNYL CITRATE PF 100 MCG/2 ML VIAL IM ONE (23:45)
== END 2023-11-20 23:45 | disposition home or self-care (01) ==
LOC: EMS 19:10
DX: R10.13 Epigastric pain (principal); F12.90 Cannabis use, unspecified, uncomplicated; Z90.89 Acquired absence of other organs; Z98.890 Other specified postprocedural states; Z88.6 Allergy status to analgesic agent; Z91.018 Allergy to other foods; Z88.8 Allergy status to other drugs, medicaments and biological substances
CPT/HCPCS: 99284; 96372; J3010; J2405

== ENCOUNTER 2023-12-10 04:55 | Emergency (ER) | payer MEDICAID ==
[~2023-12-10] VITALS: Ht 165.1 cm; Wt 89.1 kg
[~2023-12-10 04:55] MED LIST changes: -CLOM25 PO; -HYDR2TAB5 PO
[2023-12-10 06:31] LABS: ANION GAP 11 mmol/L (8-16); CALCIUM, TOTAL 7.5 mg/dL (8.8-10.5); CARBON DIOXIDE 23 mmol/L (22-29); CHLORIDE 105 mmol/L (98-107); CREATININE 0.87 mg/dL (0.60-1.30); GLOMERULAR FILTR. RATE CALC > 60 mL/min (>60); GLUCOSE,RANDOM 95 mg/dL (70-110); POTASSIUM 3.9 mmol/L (3.5-5.1); SODIUM SERUM 139 mmol/L (136-145); UREA NITROGEN, BLOOD 10 mg/dL (7-18)
[2023-12-10 06:37] LABS: ALANINE AMINOTRANSFERASE 20 U/L (12-78); ALBUMIN 3.3 g/dL (3.4-5.0); ALKALINE PHOSPHATASE 99 U/L (46-116); AMYLASE 27 U/L (25-115); ASPARTATE AMINOTRANSFERASE 22 U/L (15-37); BILIRUBIN,TOTAL 0.2 mg/dL (0.1-1.0); LIPASE 19 U/L (16-77); TOTAL PROTEIN, SERUM 6.7 g/dL (6.4-8.2)
[2023-12-10 07:53] LABS: BASOPHILS % (AUTO) 1.1 % (0.0-2.0); EOSINOPHILS % (AUTO) 9.6 % (1.0-6.0); HEMATOCRIT 34.1 % (36-46); HEMOGLOBIN 10.7 g/dL (12.0-16.0); LYMPHOCYTES # (AUTO) 2.4 K/uL (1.0-4.8); LYMPHOCYTES % (AUTO) 26.3 % (22.0-44.0); MEAN CORPUSCULAR HEMOGLOBIN 24.5 pg (26.0-34.0); MEAN CORPUSCULAR HGB CONC 31.4 G/dL (31.0-37.0); MEAN CORPUSCULAR VOLUME 78 fL (80-100); MONOCYTES # (AUTO) 0.6 K/uL (0.1-1.0); MONOCYTES % (AUTO) 6.7 % (2.0-9.0); NEUTROPHILS # (AUTO) 5.1 K/uL (1.8-7.7); NEUTROPHILS % (AUTO) 56.3 % (40.0-70.0); PLATELET COUNT (AUTO) 234 K/uL (150-450); RED BLOOD CELL COUNT(AUTO) 4.36 MIL/uL (4.00-5.20); RED CELL DISTRIBUTION WIDTH 16.8 % (11.5-14.5)
[2023-12-10 08:57] VITALS: TEMP 97.8
[2023-12-10] MEDS: FentaNYL CITRATE PF 100 MCG/2 ML VIAL IM ONE (09:45)
[2023-12-10] MEDS: ONDANSETRON HCL 4 MG/2 ML VIAL IM ONE (09:45)
[2023-12-10] MEDS: CALCIUM CARBONATE 500 MG CHEWABLE TABLET CHEW ONE (09:46)
[2023-12-10 10:20] VITALS: BP 110/64; PULSE 88; RESP 16
== END 2023-12-10 09:47 | disposition still patient (30) ==
LOC: EMS 04:56
DX: R10.32 Left lower quadrant pain (principal); F32.A Depression, unspecified; F12.90 Cannabis use, unspecified, uncomplicated; Z98.890 Other specified postprocedural states; Z90.89 Acquired absence of other organs; Z88.6 Allergy status to analgesic agent; Z91.018 Allergy to other foods; Z88.8 Allergy status to other drugs, medicaments and biological substances
CPT/HCPCS: 99284; 80053; 82150; 83690; 85025; 36415; 96372; G0480; J3010; J2405

== ENCOUNTER 2024-02-03 18:49 | Emergency (ER) | payer MEDICAID ==
[~2024-02-03] VITALS: Ht 165.1 cm; Wt 77.3 kg
[2024-02-03 18:55] VITALS: BP 115/77; PULSE 116; RESP 16; TEMP 98
[2024-02-03] MEDS ORDERED: ALPR1TAB7 PO (19:03)
[2024-02-03] MEDS ORDERED: [UNRECOGNIZED DRUG - CODE] PO (19:03)
[2024-02-03] MEDS ORDERED: HYDR-4061 PO (19:03)
[2024-02-03] MEDS ORDERED: OMEP20CA12 PO (19:03)
[2024-02-03] MEDS ORDERED: COMP10 PO (19:03)
[2024-02-03] MEDS ORDERED: ONDA-245 PO (19:03)
[2024-02-04 00:13] LABS: APPEARANCE,URINE CLEAR (CLEAR); BILIRUBIN,URINE NEGATIVE (NEGATIVE); COLOR,URINE LIGHT YELLOW (YELLOW); GLUCOSE, URINE (UA) TRACE mg/dL (NEGATIVE); KETONES,URINE NEGATIVE (NEGATIVE); LEUKOCYTE ESTERASE ,URINE SMALL (NEGATIVE); NITRATE,URINE NEGATIVE (NEGATIVE); OCCULT BLOOD,URINE NEGATIVE (NEGATIVE); PH,URINE 5.5 (5.0-8.0); PROTEIN,URINE NEGATIVE (NEGATIVE); SPECIFIC GRAVITIY, URINE 1.024 (1.003-1.030); UROBILINOGEN,URINE <=1.0 mg/dL (<=1.0)
[2024-02-04] MEDS: SODIUM CHLORIDE 0.9% 1,000 ML IV ONE (00:16)
[2024-02-04] MEDS: ONDANSETRON HCL 4 MG/2 ML VIAL IVP ONE (00:17)
[2024-02-04] MEDS: FentaNYL CITRATE PF 100 MCG/2 ML VIAL IVP ONE (00:17)
[2024-02-04] MEDS: DiphenhydrAMINE HCL 50 MG CAPSULE PO ONE (00:28)
[2024-02-04 00:49] LABS: BACTERIA,URINE Few /HPF (None Seen); RBC,URINE 0-2 /HPF (0-2); SQUAMOUS EPITHELIAL CELL,UR Few /LPF (None Seen)
== END 2024-02-04 00:51 | disposition left against medical advice (07) ==
LOC: EMS 18:49
DX: R10.9 Unspecified abdominal pain (principal); F32.A Depression, unspecified; D64.9 Anemia, unspecified; F12.90 Cannabis use, unspecified, uncomplicated; Z87.19 Personal history of other diseases of the digestive system; Z90.89 Acquired absence of other organs; Z88.5 Allergy status to narcotic agent
CPT/HCPCS: 99284; 81001; 96374; 96361; 96375; J3010; J2405; J7030

== ENCOUNTER 2024-10-31 23:49 | Emergency (ER) | payer MEDICAID ==
[~2024-10-31] VITALS: Ht 165.1 cm; Wt 90.9 kg
[~2024-10-31 23:49] MED LIST changes: +ALPR1TAB7 PO; +COMP10 PO; +DIPH50 PO; -DULO20CA71 PO; +HYDR-4061 PO; -LORA-1000 PO; -MIRT-92 PO; -NALO4SPR NASAL; +OMEP20CA12 PO; +ONDA-245 PO; -PANT-31 PO; +SUCR1TAB2 PO; -[UNRECOGNIZED DRUG - CODE] PO
[2024-11-01 00:06] VITALS: TEMP 98.6
[2024-11-01 01:34] LABS: BASOPHILS % (AUTO) 2.2 % (0.0-2.0); EOSINOPHILS % (AUTO) 6.6 % (1.0-6.0); HEMOGLOBIN 12.3 g/dL (12.0-16.0); LYMPHOCYTES # (AUTO) 2.2 K/uL (1.0-4.8); MEAN CORPUSCULAR HEMOGLOBIN 29.8 pg (26.0-34.0); MEAN CORPUSCULAR HGB CONC 33.2 G/dL (31.0-37.0); MEAN CORPUSCULAR VOLUME 90 fL (80-100); MONOCYTES # (AUTO) 0.6 K/uL (0.1-1.0); MONOCYTES % (AUTO) 7.9 % (2.0-9.0); NEUTROPHILS # (AUTO) 3.8 K/uL (1.8-7.7); NEUTROPHILS % (AUTO) 52.3 % (40.0-70.0); PLATELET COUNT (AUTO) 211 K/uL (150-450); RED BLOOD CELL COUNT(AUTO) 4.12 MIL/uL (4.00-5.20); RED CELL DISTRIBUTION WIDTH 13.7 % (11.5-14.5); WHITE BLOOD COUNT (AUTO) 7.2 K/uL (4.5-11.0)
[2024-11-01 01:39] LABS: ANION GAP 11 mmol/L (8-16); CALCIUM, TOTAL 8.2 mg/dL (8.8-10.5); CARBON DIOXIDE 27 mmol/L (22-29); CHLORIDE 104 mmol/L (98-107); CREATININE 0.77 mg/dL (0.60-1.30); GLOMERULAR FILTR. RATE CALC > 60 mL/min (>60); GLUCOSE,RANDOM 92 mg/dL (70-110); POTASSIUM 3.6 mmol/L (3.5-5.1); SODIUM SERUM 142 mmol/L (136-145); UREA NITROGEN, BLOOD 16 mg/dL (7-18)
[2024-11-01 01:40] LABS: LIPASE 58 U/L (16-77)
[2024-11-01 01:45] LABS: ALBUMIN 3.3 g/dL (3.4-5.0); BILIRUBIN,DIRECT 0.1 mg/dL (0.00-0.20); BILIRUBIN,TOTAL 0.3 mg/dL (0.1-1.0); TOTAL PROTEIN, SERUM 6.8 g/dL (6.4-8.2)
[2024-11-01] MEDS: SODIUM CHLORIDE 0.9% 2,000 ML IV ONE (02:55)
[2024-11-01] MEDS: ONDANSETRON HCL 4 MG/2 ML VIAL IVP ONE ×2 (03:07→05:00)
[2024-11-01] MEDS: HYDROmorphone HCL 2 MG/ML SYRINGE IVP ONE (03:07)
[2024-11-01] MEDS: DiphenhydrAMINE HCL 50 MG/ML VIAL IVP ONE (03:08)
[2024-11-01 04:16] LABS: APPEARANCE,URINE CLEAR (CLEAR); BILIRUBIN,URINE NEGATIVE (NEGATIVE); COLOR,URINE LIGHT YELLOW (YELLOW); GLUCOSE, URINE (UA) NEGATIVE (NEGATIVE); KETONES,URINE NEGATIVE (NEGATIVE); LEUKOCYTE ESTERASE ,URINE NEGATIVE (NEGATIVE); NITRATE,URINE NEGATIVE (NEGATIVE); OCCULT BLOOD,URINE NEGATIVE (NEGATIVE); PROTEIN,URINE NEGATIVE (NEGATIVE); SPECIFIC GRAVITIY, URINE 1.025 (1.003-1.030); UROBILINOGEN,URINE <=1.0 mg/dL (<=1.0)
[2024-11-01 04:23] LABS: ALCOHOL, URINE DRUG SCREEN NEGATIVE (NEGATIVE); AMPHET/METH SCREEN,URINE NEGATIVE (NEGATIVE); BARBITURATE SCREEN, URINE NEGATIVE (NEGATIVE); BENZODIAZEPINES SCREEN,URINE POSITIVE (NEGATIVE); CANNABINOID SCREEN,URINE POSITIVE (NEGATIVE); COCAINE SCREEN,URINE NEGATIVE (NEGATIVE); METHADONE SCREEN, URINE NEGATIVE (NEGATIVE); OPIATE SCREEN,URINE NEGATIVE (NEGATIVE); PHENCYCLIDINE SCREEN,URINE NEGATIVE (NEGATIVE)
[2024-11-01 04:24] LABS: BACTERIA,URINE None Seen /HPF (None Seen); RBC,URINE None Seen /HPF (0-2); SQUAMOUS EPITHELIAL CELL,UR Few /LPF (None Seen); WBC,URINE None Seen /HPF (0-5)
[2024-11-01] MEDS: FentaNYL CITRATE PF 100 MCG/2 ML VIAL IVP ONE (05:00)
[2024-11-01 06:40] VITALS: BP 127/95; PULSE 70; RESP 20; O2SAT 99
== END 2024-11-01 06:00 | disposition left against medical advice (07) ==
LOC: EMS 23:49
DX: K29.70 Gastritis, unspecified, without bleeding (principal); F12.90 Cannabis use, unspecified, uncomplicated; F32.A Depression, unspecified; Z88.5 Allergy status to narcotic agent; Z88.6 Allergy status to analgesic agent; Z98.84 Bariatric surgery status; Z87.11 Personal history of peptic ulcer disease; Z90.89 Acquired absence of other organs; Z87.19 Personal history of other diseases of the digestive system; Z90.49 Acquired absence of other specified parts of digestive tract; Z79.899 Other long term (current) drug therapy
CPT/HCPCS: 99284; 80048; 80076; 83690; 84703; 85025; 36415; 80307; 81001; 96374; 96375; 96361; J1171; J1200; J3010; J2405; J7030

== ENCOUNTER 2024-11-02 18:13 | Emergency (ER) | payer MEDICAID ==
[~2024-11-02] VITALS: Ht 165.1 cm; Wt 85.9 kg
[2024-11-02 18:31] VITALS: TEMP 98.2
[2024-11-02 19:16] LABS: APPEARANCE,URINE CLEAR (CLEAR); BILIRUBIN,URINE NEGATIVE (NEGATIVE); COLOR,URINE LIGHT YELLOW (YELLOW); GLUCOSE, URINE (UA) NEGATIVE (NEGATIVE); LEUKOCYTE ESTERASE ,URINE NEGATIVE (NEGATIVE); NITRATE,URINE NEGATIVE (NEGATIVE); OCCULT BLOOD,URINE NEGATIVE (NEGATIVE); PH,URINE 5.5 (5.0-8.0); PROTEIN,URINE NEGATIVE (NEGATIVE); SPECIFIC GRAVITIY, URINE 1.013 (1.003-1.030); UROBILINOGEN,URINE <=1.0 mg/dL (<=1.0)
[2024-11-02 19:28] LABS: BACTERIA,URINE Few /HPF (None Seen); RBC,URINE 0-2 /HPF (0-2); SQUAMOUS EPITHELIAL CELL,UR Few /LPF (None Seen); WBC,URINE 0-2 /HPF (0-5)
[2024-11-02 21:30] VITALS: BP 135/78; PULSE 88; RESP 18; O2SAT 99
== END 2024-11-02 22:30 | disposition left against medical advice (07) ==
LOC: EMS 18:13
DX: R10.84 Generalized abdominal pain (principal); F32.A Depression, unspecified; F12.90 Cannabis use, unspecified, uncomplicated; Z79.899 Other long term (current) drug therapy; Z88.5 Allergy status to narcotic agent; Z90.49 Acquired absence of other specified parts of digestive tract; Z88.8 Allergy status to other drugs, medicaments and biological substances; Z91.018 Allergy to other foods
CPT/HCPCS: 81001; 99283

== ENCOUNTER 2025-02-03 20:14 | Emergency (ER) | payer MEDICAID ==
[~2025-02-03] VITALS: Ht 165.1 cm; Wt 97.7 kg
[2025-02-03 20:29] VITALS: TEMP 98.3
[2025-02-03 21:13] LABS: APPEARANCE,URINE CLEAR (CLEAR); BILIRUBIN,URINE NEGATIVE (NEGATIVE); COLOR,URINE LIGHT YELLOW (YELLOW); GLUCOSE, URINE (UA) NEGATIVE (NEGATIVE); KETONES,URINE NEGATIVE (NEGATIVE); LEUKOCYTE ESTERASE ,URINE NEGATIVE (NEGATIVE); NITRATE,URINE NEGATIVE (NEGATIVE); OCCULT BLOOD,URINE NEGATIVE (NEGATIVE); PH,URINE 5.5 (5.0-8.0); PH,URINE DRUG SCREEN 5.5 (5.0-8.0); PROTEIN,URINE NEGATIVE (NEGATIVE); SPECIFIC GRAVITIY, URINE 1.012 (1.003-1.030); UROBILINOGEN,URINE <=1.0 mg/dL (<=1.0)
[2025-02-03 21:18] LABS: ALCOHOL, URINE DRUG SCREEN NEGATIVE (NEGATIVE); AMPHET/METH SCREEN,URINE NEGATIVE (NEGATIVE); BARBITURATE SCREEN, URINE NEGATIVE (NEGATIVE); BENZODIAZEPINES SCREEN,URINE POSITIVE (NEGATIVE); CANNABINOID SCREEN,URINE POSITIVE (NEGATIVE); COCAINE SCREEN,URINE NEGATIVE (NEGATIVE); METHADONE SCREEN, URINE NEGATIVE (NEGATIVE); OPIATE SCREEN,URINE NEGATIVE (NEGATIVE); PHENCYCLIDINE SCREEN,URINE NEGATIVE (NEGATIVE)
[2025-02-03 21:21] LABS: RBC,URINE 0-2 /HPF (0-2); WBC,URINE 0-2 /HPF (0-5)
[2025-02-03 21:22] LABS: BACTERIA,URINE Few /HPF (None Seen); SQUAMOUS EPITHELIAL CELL,UR Rare /LPF (None Seen)
[2025-02-03 22:09] LABS: EOSINOPHILS % (AUTO) 0.4 % (1.0-6.0); HEMATOCRIT 36.8 % (36-46); HEMOGLOBIN 12.4 g/dL (12.0-16.0); LYMPHOCYTES # (AUTO) 3.3 K/uL (1.0-4.8); LYMPHOCYTES % (AUTO) 35.8 % (22.0-44.0); MEAN CORPUSCULAR HEMOGLOBIN 29.3 pg (26.0-34.0); MEAN CORPUSCULAR HGB CONC 33.8 G/dL (31.0-37.0); MEAN CORPUSCULAR VOLUME 87 fL (80-100); MONOCYTES # (AUTO) 0.7 K/uL (0.1-1.0); MONOCYTES % (AUTO) 7.6 % (2.0-9.0); NEUTROPHILS # (AUTO) 5.2 K/uL (1.8-7.7); NEUTROPHILS % (AUTO) 55.2 % (40.0-70.0); PLATELET COUNT (AUTO) 231 K/uL (150-450); RED BLOOD CELL COUNT(AUTO) 4.24 MIL/uL (4.00-5.20); RED CELL DISTRIBUTION WIDTH 13.4 % (11.5-14.5); WHITE BLOOD COUNT (AUTO) 9.3 K/uL (4.5-11.0)
[2025-02-03 22:12] LABS: ANION GAP 9 mmol/L (8-16); CALCIUM, TOTAL 8.4 mg/dL (8.8-10.5); CARBON DIOXIDE 24 mmol/L (22-29); CHLORIDE 105 mmol/L (98-107); CREATININE 0.95 mg/dL (0.60-1.30); GLOMERULAR FILTR. RATE CALC > 60 mL/min (>60); GLUCOSE,RANDOM 96 mg/dL (70-110); POTASSIUM 3.6 mmol/L (3.5-5.1); SODIUM SERUM 138 mmol/L (136-145); UREA NITROGEN, BLOOD 7 mg/dL (7-18)
[2025-02-03 22:18] LABS: ALBUMIN 3.8 g/dL (3.4-5.0); BILIRUBIN,DIRECT 0.1 mg/dL (0.00-0.20); BILIRUBIN,TOTAL 0.3 mg/dL (0.1-1.0); TOTAL PROTEIN, SERUM 7.6 g/dL (6.4-8.2)
[2025-02-03 23:15] VITALS: BP 122/87; PULSE 99; RESP 15; O2SAT 100
== END 2025-02-03 23:23 | disposition home or self-care (01) ==
LOC: EMS 20:14
DX: R10.84 Generalized abdominal pain (principal); R11.2 Nausea with vomiting, unspecified; F12.90 Cannabis use, unspecified, uncomplicated; F32.A Depression, unspecified; F41.9 Anxiety disorder, unspecified; Z76.5 Malingerer [conscious simulation]; Z88.5 Allergy status to narcotic agent; Z88.6 Allergy status to analgesic agent; Z90.89 Acquired absence of other organs; Z87.19 Personal history of other diseases of the digestive system; Z98.84 Bariatric surgery status; Z79.899 Other long term (current) drug therapy
CPT/HCPCS: 80048; 80076; 80307; 81001; 83690; 85025; 99283